=== PATIENT | female | born 1970 | race Asian ===

== ENCOUNTER 2019-05-28 08:28 | Inpatient (IN) | payer OTHER, BC ==
[2019-05-28] MEDS: HYDROCODONE/APAP (5/325) TAB PO (08:55)
[2019-05-28 09:21] LABS: ADD MAN DIFF? NO
[2019-05-28] MEDS: CEFAZOLIN 1 GM/50 ML (PMX) 50 ML IVPB ×3 (09:22→22:30)
[2019-05-28 09:31] LABS: BASOPHILS % 0.3 % (0.0-2.0); EOSINOPHILS # 0.1 10^3/ul (0.0-0.5); EOSINOPHILS % 1.1 % (0.0-7.0); HEMATOCRIT 41.5 % (37.0-47.0); HEMOGLOBIN 14.1 g/dl (12.0-16.0); LYMPHOCYTES # 2.3 10^3/ul (0.8-2.9); LYMPHOCYTES % 23.7 % (15.0-51.0); MEAN CORPUSCULAR HEMOGLOBIN 30.5 pg (29.0-33.0); MEAN CORPUSCULAR VOLUME 89.8 fl (82.0-101.0); MEAN PLATELET VOLUME 10.5 fl (7.4-10.4); MONOCYTE # 0.7 10^3/ul (0.3-0.9); MONOCYTES % 6.9 % (0.0-11.0); NEUTROPHIL # 6.6 10^3/ul (1.6-7.5); NEUTROPHILS % 67.7 % (39.0-77.0); PLATELET COUNT 251 10^3/UL (140-415); RED BLOOD COUNT 4.62 10^6/ul (4.20-5.40); RED CELL DISTRIBUTION WIDTH 11.4 % (11.5-14.5)
[2019-05-28 09:31] LABS: WHITE BLOOD COUNT 9.7 10^3/ul (4.8-10.8)
[2019-05-28 09:46] LABS: ANION GAP 9 (5-13); BLOOD UREA NITROGEN 15 mg/dl (7-20); CALCIUM 9.2 mg/dl (8.4-10.2); CARBON DIOXIDE 30 mmol/L (21-31); CHLORIDE 104 mmol/L (97-110); CREATININE 0.59 mg/dl (0.44-1.00); Estimated GFR > 60 mL/min (>60); GLUCOSE 125 mg/dl (70-220); POTASSIUM 4.2 mmol/L (3.5-5.1); SODIUM 143 mmol/L (135-144)
[2019-05-28 09:53] LABS: INR 0.91; PROTIME 12.4 Sec (11.9-14.9)
[2019-05-28 09:54] LABS: PARTIAL THROMBOPLASTIN TIME 27.5 Sec (23.0-35.0)
[2019-05-28] MEDS ORDERED: ACETAMINOPHEN 325 MG TAB PO (10:00)
[2019-05-28] MEDS ORDERED: ONDANSETRON 4 MG INJ IV (10:00)
[2019-05-28] MEDS: DEXTROSE 5%-0.45% NACL 1,000 ML IV (13:02)
[2019-05-28] MEDS ORDERED: CEFAZOLIN 1 GM INJ IVPB (14:00)
[2019-05-28] MEDS: morphine 2 MG INJ IV ×2 (14:29→22:31)
[2019-05-29] MEDS: DEXTROSE 5%-0.45% NACL 1,000 ML IV ×3 (00:15→18:00)
[2019-05-29] MEDS: CEFAZOLIN 1 GM/50 ML (PMX) 50 ML IVPB (05:45)
[2019-05-29] MEDS ORDERED: PROPOFOL 20 ML (10:48)
[2019-05-29] MEDS ORDERED: FENTAnyl 50 MCG/ML VIAL (10:48)
[2019-05-29] MEDS ORDERED: MIDAZOLAM 1 MG/ML 2 ML INJ (10:48)
[2019-05-29] MEDS ORDERED: METOCLOPRAMIDE 10 MG INJ (10:49)
[2019-05-29] MEDS ORDERED: ONDANSETRON 4 MG INJ (10:49)
[2019-05-29] MEDS: LACTATED RINGER'S 1,000 ML IV ×2 (11:09→18:00)
[2019-05-29] MEDS ORDERED: ONDANSETRON 4 MG INJ IV (11:30)
[2019-05-29] MEDS ORDERED: KETOROLAC 60 MG INJ IM (11:30)
[2019-05-29] MEDS ORDERED: KETOROLAC 30 MG INJ IV (11:30)
[2019-05-29] MEDS ORDERED: OXYCODONE/ACETAMINOPHEN (5/325) TAB PO ×2 (11:30)
[2019-05-29] MEDS ORDERED: KETOROLAC 15 MG INJ IV (11:30)
[2019-05-29] MEDS ORDERED: HYDROmorphONE 1 MG/5 ML IV SYRINGE IV ×3 (11:30)
[2019-05-29] MEDS: POLYMYXIN/BACITRACIN 1L IRRIG ×2 (12:07→15:52)
[2019-05-29] MEDS ORDERED: LABETALOL HCL 20MG INJ ×2 (12:22→13:25)
[2019-05-29] MEDS ORDERED: NEOSTIGMINE 3 MG/3 ML SYRINGE (15:13)
[2019-05-29] MEDS ORDERED: KETOROLAC 30 MG INJ (15:15)
[2019-05-29] MEDS ORDERED: CEFAZOLIN 1 GM INJ (15:17)
[2019-05-29] MEDS ORDERED: DIPHENHYDRAMINE 50 MG INJ IV (16:00)
[2019-05-29] MEDS ORDERED: oxyCODONE 5 MG TAB PO (16:00)
[2019-05-29] MEDS ORDERED: NALOXONE (0.4 MG/ML) INJ IV (16:00)
[2019-05-29] MEDS ORDERED: MAGNESIUM HYDROXIDE 30ML CUP PO (16:00)
[2019-05-29] MEDS ORDERED: NACL 0.9% 3 ML SYG IV (16:00)
[2019-05-29] MEDS ORDERED: NA PHOSPHATE/BIPHOS 133 ML ENEMA PR (16:00)
[2019-05-29] MEDS ORDERED: BISACODYL 10 MG SUPP PR (16:00)
[2019-05-29] MEDS ORDERED: CEFAZOLIN 2 GM/50 ML (PMX) 50 ML IVPB (17:00)
[2019-05-29] MEDS: HYDROmorphONE 1 MG/ML SYG IV (17:57)
[2019-05-29] MEDS: DOCUSATE SODIUM 100 MG CAP PO (17:58)
[2019-05-29] MEDS: GABAPENTIN 300 MG CAP PO (20:44)
[2019-05-29] MEDS: CEFAZOLIN 2 GM/50 ML (PMX) 50 ML IVPB (20:44)
[2019-05-29] MEDS: ACETAMINOPHEN 500 MG TAB PO (21:38)
[2019-05-30] MEDS: CEFAZOLIN 2 GM/50 ML (PMX) 50 ML IVPB ×3 (03:47→20:42)
[2019-05-30] MEDS: DEXTROSE 5%-0.45% NACL 1,000 ML IV (04:00)
[2019-05-30] MEDS: LACTATED RINGER'S 1,000 ML IV (04:15)
[2019-05-30 05:33] LABS: ADD MAN DIFF? NO
[2019-05-30 05:36] LABS: WHITE BLOOD COUNT 11.4 10^3/ul (4.8-10.8)
[2019-05-30 05:36] LABS: BASOPHILS % 0.2 % (0.0-2.0); EOSINOPHILS # 0.1 10^3/ul (0.0-0.5); EOSINOPHILS % 0.5 % (0.0-7.0); HEMATOCRIT 36.8 % (37.0-47.0); HEMOGLOBIN 12.4 g/dl (12.0-16.0); LYMPHOCYTES # 1.9 10^3/ul (0.8-2.9); LYMPHOCYTES % 16.5 % (15.0-51.0); MEAN CORPUSCULAR HEMOGLOBIN 30.9 pg (29.0-33.0); MEAN CORPUSCULAR HGB CONC 33.7 g/dl (32.0-37.0); MEAN CORPUSCULAR VOLUME 91.8 fl (82.0-101.0); MEAN PLATELET VOLUME 10.2 fl (7.4-10.4); MONOCYTE # 1.3 10^3/ul (0.3-0.9); MONOCYTES % 11.6 % (0.0-11.0); NEUTROPHILS % 70.8 % (39.0-77.0); PLATELET COUNT 206 10^3/UL (140-415); RED BLOOD COUNT 4.01 10^6/ul (4.20-5.40); RED CELL DISTRIBUTION WIDTH 11.7 % (11.5-14.5)
[2019-05-30] MEDS: ACETAMINOPHEN 500 MG TAB PO ×3 (05:43→22:19)
[2019-05-30 06:13] LABS: ANION GAP 7 (5-13); BLOOD UREA NITROGEN 12 mg/dl (7-20); CALCIUM 8.2 mg/dl (8.4-10.2); CARBON DIOXIDE 28 mmol/L (21-31); CHLORIDE 106 mmol/L (97-110); CREATININE 0.56 mg/dl (0.44-1.00); Estimated GFR > 60 mL/min (>60); GLUCOSE 142 mg/dl (70-220); POTASSIUM 3.8 mmol/L (3.5-5.1); SODIUM 141 mmol/L (135-144)
[2019-05-30] MEDS: DOCUSATE SODIUM 100 MG CAP PO ×2 (08:04→20:30)
[2019-05-30] MEDS: oxyCODONE 5 MG TAB PO ×3 (11:16→20:31)
[2019-05-30] MEDS ORDERED: ONDANSETRON 4 MG INJ IV (16:00)
[2019-05-30] MEDS: GABAPENTIN 300 MG CAP PO (20:30)
[2019-05-31] MEDS: CEFAZOLIN 2 GM/50 ML (PMX) 50 ML IVPB ×2 (03:47→11:25)
[2019-05-31 05:33] LABS: ADD MAN DIFF? NO
[2019-05-31 05:36] LABS: WHITE BLOOD COUNT 11.4 10^3/ul (4.8-10.8)
[2019-05-31 05:36] LABS: BASOPHILS % 0.3 % (0.0-2.0); EOSINOPHILS # 0.2 10^3/ul (0.0-0.5); EOSINOPHILS % 2.1 % (0.0-7.0); HEMATOCRIT 35.8 % (37.0-47.0); HEMOGLOBIN 11.9 g/dl (12.0-16.0); LYMPHOCYTES # 2.7 10^3/ul (0.8-2.9); LYMPHOCYTES % 23.8 % (15.0-51.0); MEAN CORPUSCULAR HEMOGLOBIN 30.4 pg (29.0-33.0); MEAN CORPUSCULAR HGB CONC 33.2 g/dl (32.0-37.0); MEAN CORPUSCULAR VOLUME 91.3 fl (82.0-101.0); MEAN PLATELET VOLUME 10.2 fl (7.4-10.4); MONOCYTE # 1.3 10^3/ul (0.3-0.9); NEUTROPHIL # 7.1 10^3/ul (1.6-7.5); NEUTROPHILS % 62.4 % (39.0-77.0); PLATELET COUNT 201 10^3/UL (140-415); RED BLOOD COUNT 3.92 10^6/ul (4.20-5.40); RED CELL DISTRIBUTION WIDTH 11.5 % (11.5-14.5)
[2019-05-31 06:06] LABS: ANION GAP 5 (5-13); BLOOD UREA NITROGEN 10 mg/dl (7-20); CALCIUM 8.3 mg/dl (8.4-10.2); CARBON DIOXIDE 28 mmol/L (21-31); CHLORIDE 108 mmol/L (97-110); CREATININE 0.49 mg/dl (0.44-1.00); Estimated GFR > 60 mL/min (>60); GLUCOSE 124 mg/dl (70-220); SODIUM 141 mmol/L (135-144)
[2019-05-31] MEDS: ACETAMINOPHEN 500 MG TAB PO (06:12)
[2019-05-31] MEDS: PANTOPRAZOLE (EC) 40 MG TAB PO (06:12)
[2019-05-31] MEDS: DOCUSATE SODIUM 100 MG CAP PO (09:21)
[2019-05-31] MEDS: oxyCODONE 5 MG TAB PO (09:21)
[2019-05-31] MEDS: SENNA/DOCUSATE NA (8.6MG/50MG) TAB PO (09:23)
== END 2019-05-31 12:35 | disposition home or self-care (01) | DRG 511 ==
LOC: E/R 08:28 → 2NE 12:29
PROC: 0PSJ04Z Reposition Left Radius with Internal Fixation Device, Open Approach (ICD-10-PCS; principal; 2019-05-29 10:00)
PROC: 0PSL04Z Reposition Left Ulna with Internal Fixation Device, Open Approach (ICD-10-PCS; 2019-05-29 10:00)
DX: S52.92XB Unspecified fracture of left forearm, initial encounter for open fracture type I or II (principal); Z68.41 Body mass index [BMI] 40.0-44.9, adult; E11.8 Type 2 diabetes mellitus with unspecified complications; E66.9 Obesity, unspecified; E78.5 Hyperlipidemia, unspecified; W07.XXXA Fall from chair, initial encounter
CPT/HCPCS: 36415; 73080-LT; 73090; 73110-LT; 80048; 82962; 85025; 85610; 85730; 86850; 86900; 86901; 96374; 99285-25